=== PATIENT | male | born 1985 | race Two or more races ===

== ENCOUNTER 2018-09-08 21:38 | Emergency (ER) | payer MEDICAID ==
[~2018-09-08] VITALS: Ht 175.3 cm; Wt 68.0 kg
[2018-09-08 22:28] VITALS: BP 129/73
== END 2018-09-08 23:45 | disposition home or self-care (01) ==
LOC: ER 21:41
DX: J06.9 Acute upper respiratory infection, unspecified (principal)
CPT/HCPCS: 71045; 87804 ×2; 99284; A4606; 87400